=== PATIENT | female | born 1970 | race Caucasian/White ===

== ENCOUNTER 2018-06-13 18:10 | Emergency (ER) | payer BC ==
[2018-06-13 19:20] VITALS: BP 123/87
[2018-06-13] MEDS ORDERED: Ketorolac INJ* 60 MG/2 ML VIAL IM ONE (19:40)
--- NOTE | 2018-06-13 19:48 | UC ---
Shoulder Pain HPI - HPI Summary HPI Summary: Pt c/o sudden onset right shoulder pain 2 days ago. Denies any injury or trauma. Pt has hx of cervical nerve impingement. Pt denies any repetitive movement or heavy lifting recently. Pain is at right upper lateral humerus. No bruising or swelling. - History of Current Complaint Chief Complaint: UCUpperExtremity Stated Complaint: RT SHOULDER/ARM PAIN *1 WEEK Time Seen by Provider: 06/13/18 19:18 Hx Obtained From: Patient Hx Last Menstrual Period: 06/09/18 ?: No Onset/Duration: Sudden Onset, Lasting Days, Still Present Timing: Constant Location Of Pain: Is Discrete @, Radiates To - right forearm Pain Intensity: 9 Character: Sharp, Dull, Aching, Burning Aggravating Factor(s): Movement, Lifting, Internal Rotation, External Rotation Alleviating Factor(s): Nothing Associated Signs And Symptoms: Positive: Numbness/Tingling - right hand tingling - Risk Factors Non-Orthopedic Risk Factor: Negative DVT Risk Factors: Negative Septic Arthritis Risk Factor: Negative - Allergies/Home Medications Allergies/Adverse Reactions: Allergies Allergy/AdvReac Type Severity Reaction Status Date / Time amoxicillin [From Augmentin] Allergy Diarrhea Verified 03/30/18 14:30 clavulanic acid Allergy Diarrhea Verified 03/30/18 14:30 [From Augmentin] digoxin Allergy Unknown Verified 03/30/18 14:30 Reaction Details latex Allergy Rash Verified 03/30/18 14:30 Home Medications: Home Medications Thyroid,Pork [[place] Thyroid] 140 mg PO DAILY 06/13/18 [History Confirmed ] lamoTRIgine [Lamictal] 25 mg PO DAILY 06/13/18 [History Confirmed 06/13/18] PMH/Surg Hx/FS Hx/Imm Hx Previously Healthy: Yes - Surgical History Surgical History: Yes Surgery Procedure, Year, and Place: THYROID 1996&1998 ( THYROIDECTOMY NOW), APPENDIX 1998,GALLBLADDER 2005, C6-C7 FUSION 2008, LT KNEE SURGERY A CHILD ( PETTALLA TENDON REPAIR) CARDIAC ABLATION 1995,LAP YOHANA - Family History Known Family History: Positive: Cardiac Disease - Social History Occupation: Employed Full-time Lives: With Family Alcohol Use: Occasionally Alcohol Amount: 1-2 per week Substance Use Type: None Substance Use Comment - Amount & Last Used: alprazolam and hydrocodone Smoking Status (MU): Former Smoker Type: Cigarettes Amount Used/How Often: 1/2 PPD Length of Time of Smoking/Using Tobacco: On and Off > 10 Years Have You Smoked in the Last Year: No When Did the Patient Quit Smoking/Using Tobacco: 2008 - Immunization History Most Recent Influenza Vaccination: none Review of Systems Constitutional: Negative Skin: Negative Eyes: Negative ENT: Negative Respiratory: Negative Cardiovascular: Negative Gastrointestinal: Negative Genitourinary: Negative Motor: Decreased ROM - right shoulder Neurovascular: Negative Musculoskeletal: Arthralgia, Decreased ROM - right shoulder, Myalgia Neurological: Paresthesia - right hand Psychological: Negative Is Patient Immunocompromised?: No All Other Systems Reviewed And Are Negative: Yes Physical Exam Triage Information Reviewed: Yes Appearance: Well-Appearing Vital Signs: Initial Vital Signs Temp 98.1 F 06/13/18 19:16 Pulse 75 06/13/18 19:16 Resp 15 06/13/18 19:16 BP 123/87 06/13/18 19:16 Pulse Ox 99 06/13/18 19:16 Vital Signs Reviewed: Yes Eye Exam: Normal ENT Exam: Normal Dental Exam: Normal Neck exam: Normal Neck: Positive: Nontender Respiratory Exam: Normal Cardiovascular Exam: Normal Musculoskeletal Exam: Other Musculoskeletal: Positive: Strength Limited @ - right shoulder, ROM Limited @ - right shoulder Neurological Exam: Normal Psychological Exam: Normal Skin Exam: Normal Diagnostics - Radiology No standard instances Radiology Interpretation Completed By: Radiologist Shoulder Course/Dx - Differential Dx/Diagnosis Differential Diagnosis/HQI/PQRI: Bursitis, Sprain, Strain, Tendonitis, Other - nerve impingement Provider Diagnoses: right shoulder pain Discharge - Sign-Out/Discharge Documenting (check all that apply): Patient Departure All imaging exams completed and their final reports reviewed: No Studies - Discharge Plan Condition: Stable Disposition: HOME Prescriptions: Ketorolac TAB * [Toradol TAB *] 10 mg PO Q8H PRN #12 tab PRN Reason: Pain predniSONE TAB* [Deltasone 20 MG TAB*] 20 mg PO DAILY #4 tab Patient Education Materials: Shoulder Bursitis (ED), Shoulder Pain (ED) Referrals: Constanza Keene DO [Primary Care Provider] - Additional Instructions: Please follow up with your pain management provider and orthopedic as soon as possible. If symptoms worsen, please seek care at the closest emergency room. - Billing Disposition and Condition Condition: STABLE Disposition: Home
== END 2018-06-13 20:14 | disposition home or self-care (01) ==
LOC: UCCORT 18:10
DX: M25.511 Pain in right shoulder (principal); Z88.0 Allergy status to penicillin; Z88.8 Allergy status to other drugs, medicaments and biological substances; Z87.891 Personal history of nicotine dependence
CPT/HCPCS: 96372; 99212; G0463; J1885

== ENCOUNTER 2019-12-06 09:17 | Emergency (ER) | payer BC ==
--- OUTSIDE RECORDS SUMMARY | 2019-12-06 10:49 | XMS REPORT | Continuity of Care Document ---
:1970 External Reference #:[id number] Author Name Ag Conrad MD Address [address] [place] [id number] Problems Active Problems Provider Date Adult health examination Onset: 02/16/2019 Carpal tunnel syndrome of right wrist Onset: 12/29/2018 Cobalamin deficiency Onset: 12/07/2018 Social History Type Date Description Comments Sex Female Tobacco Use Start: Unknown End: Patient is a former smoker Smoking Status Reviewed: 10/16/19 Patient is a former smoker Allergies, Adverse Reactions, Alerts Active Allergies Reaction Severity Comments Date Augmentin severe diarrhea 06/08/2019 Cymbalta Nausea Moderate 06/08/2019 Digoxin unknown reaction from childhood Moderate 06/08/2019 Latex rash 06/08/2019 Neurontin somnolence 06/08/2019 Plums Allergic urticaria 06/08/2019 Synthroid Lydia thyroid works better Oct 2016 Mild 06/08/2019 Medications Active Medications SIG Qnty Indications Ordering Date Provider Imitrex 1 tab by mouth 2tabs IRMA Sinha 07/20/2019 100mg Tablets once if no relief from headache take another tab 2 hours later Ibuprofen Take One Tablet 60tabs Ag Conrad MD 03/05/2019 800mg Tablets By Mouth Three Times A Day as Needed Sabrina Allergy 1 daily Oral 30tabs Unknown 02/16/2019 180mg Tablets Vitamin B-12 1 daily Unknown 02/16/2019 1000mcg Sublingual Tablets Sub Alprazolam Oral; Take 1 30tabs Unknown 01/26/2019 0.25mg Tablets Tablet By Mouthat Bedtime as Needed, Maximum Daily Dose = One Tablet Ranitidine HCL 1 daily Oral 30tabs Unknown 12/07/2018 150mg Tablets Cyclobenzaprine HCL oral; take one 90tabs Shefali Posadas SAILING MASTER 06/15/2018 5mg tablet by mouth Tablets three times a day ACCESS REGISTRAR Thyroid 1 daily Oral; 90tabs Unknown 03/30/2018 15mg Tablets Take 30mg plus two 60mg daily ACCESS REGISTRAR Thyroid Oral; Take Two 180tabs Unknown 03/17/2018 60mg Tablets Tablets Daily Flonase Nasal Unknown 03/13/2018 50mcg/Act Suspension Medications Administered in Office Medication SIG Qnty Indications Ordering Provider Date TB Intradermal Test Unknown 05/18/2019 Injection TB Intradermal Test Unknown 11/17/2005 Injection Immunizations CPT Code Status Date Vaccine Lot # [id number] Given 07/17/2019 Flu < 65 years [id number] Given 08/12/2016 Tdap - Boostrix/Adacel 76926 Given 08/12/2016 Tdap - Boostrix/Adacel 68038 Given 08/12/2016 Tdap - Boostrix/Adacel [id number] Given 08/12/2016 Tdap - Boostrix/Adacel 89490 Given 08/12/2016 Tdap - Boostrix/Adacel 83336 Given 08/12/2016 Tdap - Boostrix/Adacel 51879 Given 07/29/2014 Flu < 65 years [id number] Given 06/28/2012 Flu < 65 years 66350 Given 10/15/2011 Flu < 65 years 92424 Given 03/17/2006 Td Toxoids Adsorbed For Use 7Yrs Or Older For Intramuscular Use 86168 Refused 11/11/2015 Influenza Virus Vaccine, Quadrivalent, Split, Im Use 0.25ML Vital Signs Date Vital Result Comment 10/16/2019 2:36pm BP Systolic 118 mmHg BP Diastolic 72 mmHg Height 64 inches 5'4" Weight 162.00 lb Heart Rate 101 /min Body Temperature 98.8 F O2 % BldC Oximetry 98 % BMI (Body Mass Index) 27.8 kg/m2 07/20/2019 10:40am BP Systolic 116 mmHg BP Diastolic 62 mmHg Height 65 inches 5'5" Weight 159.00 lb Heart Rate 77 /min Body Temperature 98.3 F O2 % BldC Oximetry 99 % BMI (Body Mass Index) 26.5 kg/m2 Results Test Acquired Date Facility Test Result H/L Range Note CBC Auto 07/31/2019 [facility] White Blood 6.8 10^3/uL Normal 3.5-10.[address] [place] [address] [phone] Red Blood Count 4.73 10^6/uL Normal 3.70-4.87 Hemoglobin 13.7 g/dL Normal 12.0-16.0 Hematocrit 41 % Normal 35-47 Mean Corpuscular Volume 86 fL Normal 80-97 Mean Corpuscular Hemoglobin 29 pg Normal 27-31 Mean Corpuscular HGB Conc 34 g/dL Normal 31-36 Red Cell Distribution Width 13 % Normal 10-15 Platelet Count 259 10^3/uL Normal 150-450 Mean Platelet Volume 8.9 fL Normal 7.4-10.4 Abs Neutrophils 4.0 10^3/uL Normal 1.5-7.7 Abs Lymphocytes 2.1 10^3/uL Normal 1.0-4.8 Abs Monocytes 0.4 10^3/uL Normal 0-0.8 Abs Eosinophils 0.2 10^3/uL Normal 0-0.6 Abs Basophils 0.1 10^3/uL Normal 0-0.2 Abs Nucleated RBC 0.0 10^3/uL Granulocyte % 58.5 % Lymphocyte % 31.4 % Monocyte % 6.0 % Eosinophil % 3.3 % Basophil % 0.8 % Nucleated Red Blood Cells % 0.1 Comp Metabolic 07/31/2019 [facility] Sodium 140 mmol/L Normal 135-[address] [place] [address] [phone] Potassium 4.2 mmol/L Normal 3.5-5.0 Chloride 107 mmol/L Normal 101-111 Co2 Carbon Dioxide 27 mmol/L Normal 22-32 Anion Gap 6 mmol/L Normal 2-11 Glucose 89 mg/dL Normal 70-100 Blood Urea Nitrogen 13 mg/dL Normal 6-24 Creatinine 0.87 mg/dL Normal 0.51-0.95 BUN/Creatinine Ratio 14.9 Normal 8-20 Calcium 9.1 mg/dL Normal 8.6-10.3 Total Protein 6.8 g/dL Normal 6.4-8.9 Albumin 4.3 g/dL Normal 3.2-5.2 Globulin 2.5 g/dL Normal 2-4 Albumin/Globulin Ratio 1.7 Normal 1-3 Total Bilirubin 0.30 mg/dL Normal 0.2-1.0 Alkaline Phosphatase 68 U/L Normal 34-104 Alt 4 U/L Low 7-52 Ast 14 U/L Normal 13-39 Egfr Non- 69.8 >60 Egfr 84.4 >60 1 Laboratory test 07/31/2019 [facility] TSH (Thyroid 0.09 Low 0.34-5.[address] Stim Horm) mcIU/[place] [address] [phone] Connective 07/31/2019 [facility] Anti-Nuclear 0.5 U 2 Tissue [address] [place] [address] [phone] Cyclic Citrullinated Peptide <15.6 U 3 Interpretation See Comment 4 Lyme Disease AB 07/31/2019 [facility] IgG Immunoblot Negative Negative Immunoblot WB [address] [place] [address] [phone] IgG detected against p41 kDa IgM Immunoblot Negative Negative IgM detected against p41 kDa Lyme Disease Interpretation See Comment 5 Xray 07/13/2019 [facility] Mammography <pending> [address] Screening, [place] [address] Bilateral; 2-View [phone] Each Breast TSH 05/21/2019 N2N/CCD Import TSH 0.39 mcIU/mL 0.34-5 .60 mcIU/m L Vitamin B12 05/21/2019 N2N/CCD Import Vitamin B12 834 pg/mL 180-91 4 pg/mL PPD 05/21/2019 N2N/CCD Import PPD Negative = zero mm 1 Because ethnic data is not always readily available, this report includes an eGFR for both -Americans and non- Americans. The National Kidney Disease Education Program (NKDEP) does not endorse the use of the MDRD equation for patients that are not between the ages of 18 and 70, are , have extremes of body size, muscle mass, or nutritional status, or are non- or non-. According to the National Kidney Foundation, irrespective of diagnosis, the stage of the disease is based on the level of kidney function: Stage Description GFR(mL/min/1.73 m(2)) 1 Kidney damage with normal or decreased GFR 90 2 Kidney damage with mild decrease in GFR 60-89 3 Moderate decrease in GFR 30-59 4 Severe decrease in GFR 15-29 5 Kidney failure <15 (or dialysis) 2 REFERENCE VALUE <=1.0 (Negative) 3 REFERENCE VALUE <20.0 (Negative) 4 Tests for antibodies to dsDNA and ALEXANDRA antigens are not performed automatically unless the STEFFANIE result is > or = 3.0 U. Studies performed at [facility] indicate that positive STEFFANIE results <3.0 U are rarely accompanied by positive second order tests. Test Performed by: [facility] [employer] [place] [address] Vault Mechanic: Shane Riggs M.D. Ph.D.; IA# [id number] 5 Specific serologic response to B. burgdorferi infection is not detected, but cannot rule out early infection during which low or undetectable antibody levels to B. burgdorferi may be present. If clinically indicated, a new serum specimen should be submitted in 7-14 days. ADDITIONAL INFORMATION Per CDC criteria, the Lyme IgG Immunoblot is interpreted as positive if IgG-class antibodies are detected to >=5 B. burgdorferi proteins, and the Lyme IgM Immunoblot is interpreted as positive if IgM-class antibodies are detected to >=2 B. burgdorferi proteins. Immunoblot patterns not meeting these criteria should not be interpreted as positive. Epitopes from certain B. burgdorferi proteins (e.g., p41) are conserved across other bacteria, which may lead to the detection of IgM- and/or IgG-class antibodies on the Lyme disease immunoblots in patients without Lyme disease. Immunoblot should only be ordered on specimens that are positive or equivocal by a FDA-licensed Lyme disease antibody screening test (e.g., EIA). Results of the Lyme IgM immunoblot should not be considered in patients with >= 30 days of symptoms. Test Performed by: [facility] [employer] [place] [address] Vault Mechanic: Shane Riggs M.D. Ph.D.; [facility]# [id number] Procedures Date Code Description Status 10/16/2019 86314 Brief Emotional/Behav Assessment W/ Scoring Doc Per Completed Standard Inst Medical Devices Description No Information Available Encounters Type Date Location Provider Dx Diagnosis Office Visit 10/16/[address] [facility] Giovanny Conrad MD J06.9 Acute upper respiratory 2:30p infection, unspecified Office Visit 07/20/[address] [facility] IRMA Liu G44.201 Tension-type headache, 10:30a unspecified, intractable Z68.26 Body mass index (BMI) 26.0-26.9, adult Assessments Date Code Description Provider 10/16/2019 J06.9 Acute upper respiratory infection, unspecified Ag Conrad MD 07/20/2019 G44.201 Tension-type headache, unspecified, intractable IRMA Sinha 07/20/2019 Z68.26 Body mass index (BMI) 26.0-26.9, adult IRMA Sinha 07/17/2019 Z23 Encounter for immunization Ag Conrad MD Plan of Treatment No Information Available Functional Status Description No Information Available Mental Status Description No Information Available Referrals Description No Information Available
--- OUTSIDE RECORDS SUMMARY | 2019-12-06 10:49 | XMS REPORT | Continuity of Care Document ---
:1970 External Reference #:[id number] Author Name Ag Conrad MD (transmitted by agent of provider Tavia Quinonez) Address [address] [place] [id number] Problems Active Problems Provider Date Adult health examination Onset: 02/16/2019 Carpal tunnel syndrome of right wrist Onset: 12/29/2018 Cobalamin deficiency Onset: 12/07/2018 Hypothyroidism Onset: 12/07/2018 Migraine Ag Conrad MD Onset: 10/16/2019 Allergic rhinitis Ag Conrad MD Onset: 11/17/2019 Social History Type Date Description Comments Sex Female Tobacco Use Start: Unknown End: Patient is a former smoker Smoking Status Reviewed: 12/03/19 Patient is a former smoker Allergies, Adverse Reactions, Alerts Active Allergies Reaction Severity Comments Date Augmentin severe diarrhea 06/08/2019 Cymbalta Nausea Moderate 06/08/2019 Digoxin unknown reaction from childhood Moderate 06/08/2019 Latex rash 06/08/2019 Neurontin somnolence 06/08/2019 Plums Allergic urticaria 06/08/2019 Synthroid [place] thyroid works better Oct 2016 Mild 06/08/2019 Medications Active Medications SIG Qnty Indications Ordering Date Provider Ibuprofen Take One Tablet 60tabs Ag Conrad MD 03/05/2019 800mg Tablets By Mouth Three Times A Day as Needed Vitamin B-12 1 daily Unknown 02/16/2019 1000mcg Sublingual Tablets Sub Cyclobenzaprine HCL oral; take one 90tabs IRMA Sinha 06/15/2018 5mg tablet by mouth Tablets three times a day ACCOUNTS RECEIVABLE ASSISTANT Thyroid Oral; Take Two 180tabs Unknown 03/17/2018 60mg Tablets Tablets Daily Flonase Nasal Unknown 03/13/2018 50mcg/Act Suspension Levocetirizine Take One Tablet Unknown Dihydrochloride By Mouth Every 5mg Day Tablets Montelukast Sodium Take One Tablet Unknown 10mg By Mouth AT Tablets Bedtime History Medications Prednisone 2 tabs once daily 10tabs Constanza Keene, 11/23/2019 - 20mg Tablets for 5 days DO 12/02/2019 Indomethacin take one tab 90caps Constanza Keene, 11/06/2019 - 25mg twice daily, DO 11/23/2019 Capsules increase to three times daily if needed Imitrex 1 tab by mouth 2tabs IRMA Sinha 07/20/2019 - 100mg Tablets once if no relief 12/02/2019 from headache take another tab 2 hours later Medications Administered in Office Medication SIG Qnty Indications Ordering Provider Date TB Intradermal Test Unknown 05/18/2019 Injection TB Intradermal Test Unknown 11/17/2005 Injection Immunizations CPT Code Status Date Vaccine Lot # [id number] Given 07/17/2019 Flu < 65 years [id number] 81200 Given 08/12/2016 Tdap - Boostrix/Adacel 07161 Given 08/12/2016 Tdap - Boostrix/Adacel 53903 Given 08/12/2016 Tdap - Boostrix/Adacel 60251 Given 08/12/2016 Tdap - Boostrix/Adacel 30916 Given 08/12/2016 Tdap - Boostrix/Adacel 86521 Given 08/12/2016 Tdap - Boostrix/Adacel 17891 Given 07/29/2014 Flu < 65 years 93703 Given 06/28/2012 Flu < 65 years 45016 Given 10/15/2011 Flu < 65 years 88135 Given 03/17/2006 Td Toxoids Adsorbed For Use 7Yrs Or Older For Intramuscular Use 78246 Refused 11/11/2015 Influenza Virus Vaccine, Quadrivalent, Split, Im Use 0.25ML Vital Signs Date Vital Result Comment 12/03/2019 10:10am BP Systolic 114 mmHg BP Diastolic 68 mmHg Weight 160.00 lb Heart Rate 102 /min Body Temperature 99.0 F O2 % BldC Oximetry 97 % 11/06/2019 10:49am BP Systolic 118 mmHg BP Diastolic 80 mmHg Weight 163.00 lb Heart Rate 81 /min Body Temperature 98.2 F O2 % BldC Oximetry 97 % Results Test Acquired Date Facility Test Result H/L Range Note CFM Rapid Flu 12/03/2019 [facility] Influenza A Rapid Neg A & B ( )- - Test Influenza B Rapid Test Neg Laboratory 11/02/2019 [facility] TSH (Thyroid 1.30 Normal 0.34 -5.60 test finding [address] Stim Horm) mcIU/[place] [address] [phone] Anti Nuclear Antibody 0.4 U 1 Comp Metabolic 11/02/2019 [facility] Sodium 138 mmol/L Normal 135-[address] [place] [address] [phone] Potassium 4.1 mmol/L Normal 3.5-5.0 Chloride 105 mmol/L Normal 101-111 Co2 Carbon Dioxide 28 mmol/L Normal 22-32 Anion Gap 5 mmol/L Normal 2-11 Glucose 74 mg/dL Normal 70-100 Blood Urea Nitrogen 11 mg/dL Normal 6-24 Creatinine 0.81 mg/dL Normal 0.51-0.95 BUN/Creatinine Ratio 13.6 Normal 8-20 Calcium 9.0 mg/dL Normal 8.6-10.3 Total Protein 6.9 g/dL Normal 6.4-8.9 Albumin 4.3 g/dL Normal 3.2-5.2 Globulin 2.6 g/dL Normal 2-4 Albumin/Globulin Ratio 1.7 Normal 1-3 Total Bilirubin 0.40 mg/dL Normal 0.2-1.0 Alkaline Phosphatase 75 U/L Normal 34-104 Alt 5 U/L Low 7-52 Ast 15 U/L Normal 13-39 Egfr Non- 75.8 >60 Egfr 91.7 >60 2 CBC Auto 11/02/2019 [facility] White Blood 5.7 10^3/uL Normal 3.5-10.[address] [place] [address] [phone] Red Blood Count 4.72 10^6/uL Normal 3.70-4.87 Hemoglobin 14.2 g/dL Normal 12.0-16.0 Hematocrit 40 % Normal 35-47 Mean Corpuscular Volume 86 fL Normal 80-97 Mean Corpuscular Hemoglobin 30 pg Normal 27-31 Mean Corpuscular HGB Conc 35 g/dL Normal 31-36 Red Cell Distribution Width 13 % Normal 10-15 Platelet Count 266 10^3/uL Normal 150-450 Mean Platelet Volume 9.4 fL Normal 7.4-10.4 Abs Neutrophils 3.2 10^3/uL Normal 1.5-7.7 Abs Lymphocytes 1.9 10^3/uL Normal 1.0-4.8 Abs Monocytes 0.4 10^3/uL Normal 0-0.8 Abs Eosinophils 0.1 10^3/uL Normal 0-0.6 Abs Basophils 0.1 10^3/uL Normal 0-0.2 Abs Nucleated RBC 0.0 10^3/uL Granulocyte % 56.2 % Lymphocyte % 34.2 % Monocyte % 6.6 % Eosinophil % 2.0 % Basophil % 1.0 % Nucleated Red Blood Cells % 0.1 Laboratory test 11/02/2019 [facility] C Reactive 1.59 mg/L Normal <8.[address] [place] [address] [phone] Erythrocyte Sed Rate 9 mm/Hr Normal 0-19 Urinalysis Profile 11/02/2019 [facility] Urine Color Straw [address] [place] [address] [phone] Urine Appearance Clear Urine Specific [address] 1.005 Low 1.010-1.030 Urine pH 7.0 Normal 5-9 Urine Urobilinogen Negative Negative Urine Ketones Negative Negative Urine Protein Negative Negative Urine Leukocytes Negative Negative Urine Blood Negative Negative Urine Nitrite Negative Negative Urine Bilirubin Negative Negative Urine Glucose Negative Negative CBC Auto 07/31/2019 [facility] White Blood 6.8 10^3/uL Normal 3.5-10.[address] [place] [address] [phone] Red Blood Count 4.73 10^6/uL Normal 3.70-4.87 [...] Blood Cells % 0.1 Comp Metabolic 07/31/2019 [facility] Sodium 140 mmol/L Normal 135-[address] [place] [address] [phone] Potassium 4.2 mmol/L Normal 3.5-5.0 Chloride 107 [...] Egfr Non- 69.8 >60 Egfr 84.4 >60 3 Laboratory test 07/31/2019 [facility] TSH (Thyroid 0.09 Low 0.34-5.[address] Stim Horm) mcIU/[place] [address] [phone] Connective 07/31/2019 [facility] Anti-Nuclear 0.5 U [address] [place] [address] [phone] Cyclic Citrullinated Peptide <15.6 U 5 Interpretation See Comment 6 Lyme Disease AB 07/31/2019 [facility] IgG Immunoblot Negative Negative Immunoblot WB [address] [facility] [address] [phone] IgG detected against p41 kDa IgM Immunoblot Negative Negative IgM detected against p41 kDa Lyme Disease Interpretation See Comment 7 Xray 07/13/2019 [facility] Mammography Screening, <pending> [address] Bilateral; 2-[place] [address] [phone] 1 REFERENCE VALUE <=1.0 (Negative) Test Performed by: [facility] [address] [place] [address] Medical Imaging Tech: Shane Riggs M.D. Ph.D.; IA# [id number] 2 Because ethnic data is not always readily [...] 15-29 5 Kidney failure <15 (or dialysis) 3 Because ethnic data is not always readily [...] 15-29 5 Kidney failure <15 (or dialysis) 4 REFERENCE VALUE <=1.0 (Negative) 5 REFERENCE VALUE <20.0 (Negative) 6 Tests for antibodies to dsDNA and ALEXANDRA antigens are not performed automatically unless the STEFFANIE result is > or = 3.0 U. Studies performed at [facility] indicate that positive STEFFANIE results <3.0 U are rarely accompanied by positive second order tests. Test Performed by: [facility] [employer] [place] [address] Medical Imaging Tech: Shane Riggs M.D. Ph.D.; CLIA# [id number] 7 Specific serologic response to B. burgdorferi infection [...] 30 days of symptoms. Test Performed by: [facility] [address] [facility], [place] [address] Medical Imaging Tech: Shane Riggs M.D. Ph.D.; IA# [id number] Procedures Date Code Description Status 12/03/2019 76774 Brief Emotional/Behav Assessment W/ Scoring Doc Per Completed Standard Inst 11/06/2019 32461 Brief Emotional/Behav Assessment W/ Scoring Doc Per Completed Standard Inst 10/16/2019 98211 Brief Emotional/Behav Assessment W/ Scoring Doc Per Completed Standard Inst Medical Devices Description No Information Available Encounters Type Date Location Provider Dx Diagnosis Office Visit 11/06/2019 10:45a [facility] Constanza Josenow, DO R51 Headache H53.8 Other visual disturbances R14.0 Abdominal distension (gaseous) Z13.31 Encounter for screening for depression Office Visit 10/16/2019 2:30p [facility] Main Ag Conrad MD J06.9 Acute upper respiratory infection, unspecified Z13.31 Encounter for screening for depression Office Visit 07/20/2019 10:30a [facility] Main IRMA Sinha G44.201 Tension- type headache, unspecified, intractable Z68.26 Body mass index (BMI) 26.0-26.9, adult Assessments Date Code Description Provider 12/03/2019 R05 Cough Ag Conrad MD 11/06/2019 R51 Headache Constanza Josenow, DO 11/06/2019 H53.8 Other visual disturbances Constanza Josenow, DO 11/06/2019 R14.0 Abdominal distension (gaseous) Constanza Josenow, DO 11/06/2019 Z13.31 Encounter for screening for depression Constanza Joselizw, DO 10/16/2019 J06.9 Acute upper respiratory infection, Ag Conrad MD unspecified 10/16/2019 Z13.31 Encounter for screening for depression Ag Conrad MD 07/20/2019 G44.201 Tension-type headache, unspecified, IRMA Sinha intractable 07/20/2019 Z68.26 Body mass index (BMI) 26.0-26.9, adult IRMA Sinha 07/17/2019 Z23 Encounter for immunization Ag Conrad MD Plan of Treatment No Information Available Functional Status Description No Information Available Mental Status Description No Information Available Referrals Refer to Reason for Referral Status Appt Date Patient Choice Daily, severe headaches, MRI brain negative Sent
--- OUTSIDE RECORDS SUMMARY | 2019-12-06 10:49 | XMS REPORT | Continuity of Care Document ---
:1970 External Reference #:[id number] Author Name Constanza Keene, DO Address [address] [place] [address] Problems Active Problems Provider Date Adult health examination Onset: 02/16/2019 Carpal tunnel syndrome of right wrist Onset: 12/29/2018 Cobalamin deficiency Onset: 12/07/2018 Hypothyroidism Onset: 12/07/2018 Migraine Ag Conrad MD Onset: 10/16/2019 Social History Type Date Description Comments Sex Female Tobacco Use Start: Unknown End: Patient is a former smoker Smoking Status Reviewed: 10/16/19 Patient is a former smoker Allergies, Adverse Reactions, Alerts Active Allergies Reaction Severity Comments Date Augmentin severe diarrhea 06/08/2019 Cymbalta Nausea Moderate 06/08/2019 Digoxin unknown reaction from childhood Moderate 06/08/2019 Latex rash 06/08/2019 Neurontin somnolence 06/08/2019 Plums Allergic urticaria 06/08/2019 Synthroid [place] thyroid works better Oct 2016 Mild 06/08/2019 [...] Cyclobenzaprine HCL oral; take one 90tabs Shefali PosadasIRMA 06/15/2018 5mg tablet by mouth Tablets three times a day [employer] Thyroid 1 daily Oral; 90tabs Unknown 03/30/2018 15mg Tablets Take 30mg plus two 60mg daily [employer] Thyroid Oral; Take Two 180tabs Unknown 03/17/2018 60mg Tablets Tablets Daily Flonase Nasal Unknown 03/13/2018 50mcg/Act Suspension Medications Administered in Office Medication SIG Qnty Indications Ordering Provider Date TB Intradermal Test Unknown 05/18/2019 Injection TB Intradermal Test Unknown 11/17/2005 Injection Immunizations CPT Code Status Date Vaccine Lot # [id number] Given 07/17/2019 Flu < 65 years [id number] 77290 Given 08/12/2016 Tdap - Boostrix/Adacel 28000 Given 08/12/2016 Tdap - Boostrix/Adacel 99982 Given 08/12/2016 Tdap - Boostrix/Adacel 88652 Given 08/12/2016 Tdap - Boostrix/Adacel 67299 Given 08/12/2016 Tdap - Boostrix/Adacel 96179 Given 08/12/2016 Tdap - Boostrix/Adacel 30049 Given 07/29/2014 Flu < 65 years 41071 Given 06/28/2012 Flu < 65 years 08066 Given 10/15/2011 Flu < 65 years 14517 Given 03/17/2006 Td Toxoids Adsorbed For Use 7Yrs Or Older For Intramuscular Use 43214 Refused 11/11/2015 Influenza Virus Vaccine, Quadrivalent, Split, [...] Date Facility Test Result H/L Range Note Laboratory test 11/02/2019 [facility] TSH 1.30 Normal 0.34- 5.[address] (Thyroid mcIU/[place] [address] Stim [phone] Horm) Anti Nuclear Antibody 0.4 U 1 Comp Metabolic 11/02/2019 [facility] Sodium 138 mmol/L Normal 135-[address] [place], [place] [id number] [phone] Potassium 4.1 mmol/L Normal 3.5-5.0 Chloride 105 [...] Egfr 91.7 >60 2 CBC Auto 11/02/2019 [facility] White Blood 5.7 10^3/uL Normal 3.5-10.[address] Count [place], [place] [id number] [phone] Red Blood Count 4.72 10^6/uL Normal 3.70-4.87 [...] Blood Cells % 0.1 Laboratory test 11/02/2019 [facility] C Reactive 1.59 mg/L Normal <8.[address] [place] [address] [phone] Erythrocyte Sed Rate 9 mm/Hr Normal 0-19 Urinalysis Profile 11/02/2019 [facility] Urine Color Straw [address] [place] [address] [phone] Urine Appearance Clear Urine Specific [place] 1.005 Low 1.010-1.030 Urine pH 7.0 Normal 5-9 Urine Urobilinogen Negative Negative Urine Ketones Negative Negative Urine Protein Negative Negative Urine Leukocytes Negative Negative Urine Blood Negative Negative Urine Nitrite Negative Negative Urine Bilirubin Negative Negative Urine Glucose Negative Negative CBC Auto 07/31/2019 [facility] White Blood 6.8 10^3/uL Normal 3.5-10.[address] [place] [address] [phone] Red Blood Count 4.73 10^6/uL Normal 3.70-4.87 [...] Blood Cells % 0.1 Comp Metabolic 07/31/2019 [facility] Sodium 140 mmol/L Normal 135-[address] [place] [address] [phone] Potassium 4.2 mmol/L Normal 3.5-5.0 Chloride 107 [...] Egfr 84.4 >60 3 Laboratory test 07/31/2019 [facility] TSH (Thyroid 0.09 Low 0.34-5.[address] Stim Horm) mcIU/mL [place], [place] [address] [phone] Connective 07/31/2019 [facility] Anti-Nuclear 0.5 U 4 Tissue Panel [address] [place] [address] [phone] Cyclic Citrullinated Peptide <15.6 U 5 Interpretation See Comment 6 Lyme Disease AB 07/31/2019 [facility] IgG Immunoblot Negative Negative Immunoblot WB [address] [place] [address] [phone] IgG detected against p41 kDa IgM Immunoblot Negative Negative IgM detected against p41 kDa Lyme Disease Interpretation See Comment 7 Xray 07/13/2019 [facility] Mammography <pending> [address] Screening, [place] [address] Bilateral; 2-View [phone] Each Breast TSH 05/21/2019 N2N/CCD Import TSH 0.39 mcIU/mL 0.34-5 .60 mcIU/m L Vitamin B12 05/21/2019 N2N/CCD Import Vitamin B12 834 pg/mL 180-91 4 pg/mL PPD 05/21/2019 N2N/CCD Import PPD Negative = zero mm 1 REFERENCE VALUE <=1.0 (Negative) Test Performed by: [facility] [address] [place] [address] Clearer: Shane Riggs M.D. Ph.D.; IA# [id number] 2 Because ethnic data is not always [...] or = 3.0 U. Studies performed at [facility] indicate that positive STEFFANIE results <3.0 U are rarely accompanied by positive second order tests. Test Performed by: [facility] [place] [address] [place] [address] Clearer: Shane Riggs M.D. Ph.D.; CLIA# [id number] 7 Specific serologic response to B. burgdorferi [...] 30 days of symptoms. Test Performed by: [facility] [address] [place] [address] Clearer: Shane Riggs M.D. Ph.D.; CLIA# [id number] Procedures Date Code Description Status 10/16/2019 51609 Brief Emotional/Behav Assessment W/ Scoring Doc Per Completed Standard [facility] Medical Devices Description No Information Available Encounters Type Date Location Provider Dx Diagnosis Office Visit 10/16/2019 [facility] Ag Conrad MD J06.9 Acute upper respiratory 2:30p infection, unspecified Office Visit 07/20/2019 [facility] IRMA Sinha G44.201 Tension-type headache, 10:30a unspecified, intractable Z68.26 Body mass index (BMI) 26.0-26.9, adult Assessments Date Code Description Provider 10/16/2019 J06.9 Acute upper respiratory infection, unspecified Ag Conrad MD 07/20/2019 G44.201 Tension-type headache, unspecified, intractable IRMA Sinha 07/20/2019 Z68.26 Body mass index (BMI) 26.0-26.9, adult IRMA Sinha 07/17/2019 Z23 Encounter for immunization Ag Conrad MD Plan of Treatment Future Appointment(s):11/06/2019 10:45 am - Constanza Keene DO at [facility] Main - Ag Conrad MDJ06.9 Acute upper respiratory infection, unspecified Functional Status Description No Information Available Mental Status Description No Information Available Referrals Description No Information Available
--- OUTSIDE RECORDS SUMMARY | 2019-12-06 10:49 | XMS REPORT | Continuity of Care Document ---
:1970 External Reference #:[id number] Author Name Angela Bro M.D. 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 Onset: 10/23/2019 Social History Type Date Description Comments Sex Unknown ETOH Use Occasionally consumes alcohol ETOH Use Occasionally consumes beer ETOH Use Occasionally consumes wine Tobacco Use Start: Unknown End: Patient is a former smoker Unknown Recreational Drug Use Never Used Drugs Allergies, Adverse Reactions, Alerts Active Allergies Reaction Severity Comments Date Augmentin severe diarrhea 10/23/2019 Digoxin cant recall 10/23/2019 Latex Hives 10/23/2019 Medications Active Medications SIG Qnty Indications Ordering Date Provider Montelukast Sodium 1 tab by mouth 30tabs J30.9 Angela Burciaga 10/23/2019 10mg every night at Marge Bro Tablets bedtime Levocetirizine 1 by mouth 30tabs J30.9 Angela Patrica 10/23/2019 Dihydrochloride every day Marge Bro 5mg Tablets Flonase Sensimist 1 spray each 27.300ml Angela Burciaga 10/23/2019 nostril once a Marge Bro 27.5mcg/[place] day Suspension Ibuprofen Take One Unknown 800mg Tablets Tablet By Mouth Three Times A Day as Needed [employer] SPECIALIST Thyroid Ag Conrad, 60mg Tablets M.DHilario Cyclobenzaprine HCL Shefali Posadas NP 5mg Tablets Alprazolam Y[place], 0.25mg Tablets Constanza Burciaga DO Vitamin B-12 1 by mouth Unknown 1000mcg every day Tablets Immunizations CPT Code Status Date Vaccine Lot # 95093 Given Unknown Influenza Vaccine Vital Signs Date Vital Result Comment 10/23/2019 1:59pm Height 64.2 inches 5'4.20" Weight 160.00 lb Weight 72.576 kg Respiratory Rate 16 /min Heart Rate 79 /min O2 % BldC Oximetry 98 % BP Systolic 114 mmHg BP Diastolic 70 mmHg BMI (Body Mass Index) 27.3 kg/m2 Results Description No Information Available Procedures Date Code Description Status 10/23/2019 09110 Skin Test Scratch # Of Units ____ Completed Medical Devices Description No Information Available Encounters Type Date Location Provider Dx Diagnosis Office Visit 10/23/2019 [facility] Angela Valerio30.9 Allergic rhinitis, 2:00p Marge Bro unspecified Assessments Date Code Description Provider 10/23/2019 J30.9 Allergic rhinitis, unspecified Angela Bro M.D. Plan of Treatment Future Appointment(s):11/06/2019 9:00 am - Allergy Testing at [facility] 9:20 am - ALL[facility]ontes [facility] - Angela Bro M.D.J30.9 Allergic rhinitis, unspecifiedNew Medication: Montelukast Sodium 10 mg - 1 tab by mouth every night at bedtimeLevocetirizine Dihydrochloride 5 mg - 1 by mouth every dayFollow up:2 weeks, *DISCUSSION: After the evaluation is completed, the results and treatment choices will be explained. *TAKE NO ANTIHISTAMINES OR MEDICATIONS THAT CONTAIN ANTIHISTAMINES 72 HOURS PRIOR TO SKIN TESTING VISIT . POSSIBLE GRASS *INTRADERMAL TESTS: A pinprick of extract is injected underneath the skin on the upper arm.Recommendations:Prick Skin Test - Seasonal and Environmental Environmental controls reviewed risks/benefits of IT briefly discussed trial of Flonase sensimist 2 sprays to each nostril once daily recommend Xyzal (Levocetirizine) 5 mg once daily recommend Singulair (Montelukast) 10 mg once daily Functional Status Description No Information Available Mental Status Description No Information Available Referrals Description No Information Available
--- OUTSIDE RECORDS SUMMARY | 2019-12-06 10:49 | XMS REPORT | Continuity of Care Document ---
:1970 External Reference #:[id number] Author Name Constanza Keene DO Address [address] [place] [address] Problems Active Problems Provider Date Adult health examination Onset: 02/16/2019 Carpal tunnel syndrome of right wrist Onset: 12/29/2018 Cobalamin deficiency Onset: 12/07/2018 Hypothyroidism Onset: 12/07/2018 Migraine Ag Conrad MD Onset: 10/16/2019 Social History Type Date Description Comments Sex Female Tobacco Use Start: Unknown End: Patient is a former smoker Smoking Status Reviewed: 11/06/19 Patient is a former smoker Allergies, Adverse Reactions, Alerts Active Allergies Reaction Severity Comments Date Augmentin severe diarrhea 06/08/2019 Cymbalta Nausea Moderate 06/08/2019 Digoxin unknown reaction from childhood Moderate 06/08/2019 Latex rash 06/08/2019 Neurontin somnolence 06/08/2019 Plums Allergic urticaria 06/08/2019 Synthroid [place] thyroid works better Oct 2016 Mild 06/08/2019 Medications Active Medications SIG Qnty Indications Ordering Date Provider Indomethacin take one tab 90caps Constanza 11/06/2019 25mg twice daily, DO Yecenia Capsules increase to three times daily if [...] by mouth Tablets three times a day CREDIT [employer]ODUCT [employer]NALYST Thyroid Oral; Take Two 180tabs Unknown 03/17/2018 60mg Tablets Tablets Daily Flonase Nasal Unknown 03/13/2018 50mcg/Act Suspension Levocetirizine Take One Tablet Unknown Dihydrochloride By Mouth Every 5mg Day Tablets Montelukast Sodium Take One Tablet Unknown 10mg By Mouth AT Tablets Bedtime Medications Administered in Office Medication SIG Qnty Indications Ordering Provider Date TB Intradermal Test Unknown 05/18/2019 Injection TB Intradermal Test Unknown 11/17/2005 Injection Immunizations CPT Code Status Date Vaccine Lot # [id number] Given 07/17/2019 Flu < 65 years [id number] Given 08/12/2016 Tdap - Boostrix/Adacel 15214 Given 08/12/2016 Tdap - Boostrix/Adacel 75528 Given 08/12/2016 Tdap - Boostrix/Adacel 78369 Given 08/12/2016 Tdap - Boostrix/Adacel 73163 Given 08/12/2016 Tdap - Boostrix/Adacel 09137 Given 08/12/2016 Tdap - Boostrix/Adacel 32249 Given 07/29/2014 Flu < 65 years 39792 Given 06/28/2012 Flu < 65 years 56272 Given 10/15/2011 Flu < 65 years 38761 Given 03/17/2006 Td Toxoids Adsorbed For Use 7Yrs Or Older For Intramuscular Use 23406 Refused 11/11/2015 Influenza Virus Vaccine, Quadrivalent, Split, Im Use 0.25ML Vital Signs Date Vital Result Comment 11/06/2019 10:49am BP Systolic 118 mmHg BP Diastolic 80 mmHg Weight 163.00 lb Heart Rate 81 /min Body Temperature 98.2 F O2 % BldC Oximetry 97 % 10/16/2019 2:36pm BP Systolic 118 mmHg BP Diastolic 72 mmHg Height 64 inches 5'4" Weight 162.00 lb Heart Rate 101 /min Body Temperature 98.8 F O2 % BldC Oximetry 98 % BMI (Body Mass Index) 27.8 kg/m2 Results Test Acquired Date Facility Test Result H/L Range Note Laboratory test 11/02/2019 [facility] TSH 1.30 Normal 0.34- 5.[address] (Thyroid mcIU/[place] [address] Stim [phone] Horm) Anti Nuclear Antibody 0.4 U 1 Comp Metabolic 11/02/2019 [facility] Sodium 138 mmol/L Normal 135-[address] [place] [address] [phone] Potassium 4.1 mmol/L Normal 3.5-5.0 Chloride 105 [...] Egfr 91.7 >60 2 CBC Auto 11/02/2019 [facility] White Blood 5.7 10^3/uL Normal 3.5-10.[address] [place] [address] [phone] Red Blood Count 4.72 10^6/uL Normal 3.70-4.87 [...] Blood Cells % 0.1 Laboratory test 11/02/2019 [facility] C Reactive 1.59 mg/L Normal <8.[address] [place] [address] [phone] Erythrocyte Sed Rate 9 mm/Hr Normal 0-19 Urinalysis Profile 11/02/2019 [facility] Urine Color Straw [address] [place] [address] [phone] Urine Appearance Clear Urine Specific [place] 1.005 Low 1.010-1.030 Urine pH 7.0 Normal 5-9 Urine Urobilinogen Negative Negative Urine Ketones Negative Negative Urine Protein Negative Negative Urine Leukocytes Negative Negative Urine Blood Negative Negative Urine Nitrite Negative Negative Urine Bilirubin Negative Negative Urine Glucose Negative Negative CBC Auto 07/31/2019 [facility] White Blood 6.8 10^3/uL Normal 3.5-10.[address] [place] [address] [phone] Red Blood Count 4.73 10^6/uL Normal 3.70-4.87 [...] Blood Cells % 0.1 Comp Metabolic 07/31/2019 [facility] Sodium 140 mmol/L Normal 135-[address] [place] [address] [phone] Potassium 4.2 mmol/L Normal 3.5-5.0 Chloride 107 [...] Egfr 84.4 >60 3 Laboratory test 07/31/2019 [facility] TSH (Thyroid 0.09 Low 0.34-5.[address] Stim Horm) mcIU/[place] [address] [phone] Connective 07/31/2019 [facility] Anti-Nuclear 0.5 U [address] [place] [address] [phone] Cyclic Citrullinated Peptide <15.6 U 5 Interpretation See Comment 6 Lyme Disease AB 07/31/2019 [facility] IgG Immunoblot Negative Negative Immunoblot WB [address] [place] [address] [phone] IgG detected against p41 kDa IgM Immunoblot Negative Negative IgM detected against p41 kDa Lyme Disease Interpretation See Comment 7 Xray 07/13/2019 [facility] Mammography <pending> [address] [facility], [place] [address] Bilateral; 2-View [phone] Each Breast TSH 05/21/2019 [facility] Import TSH 0.39 mcIU/mL 0.34-5 .60 mcIU/m L Vitamin B12 05/21/2019 [facility] Import Vitamin B12 834 pg/mL 180-91 4 pg/mL PPD 05/21/2019 [facility] Import PPD Negative = zero mm 1 REFERENCE VALUE <=1.0 (Negative) Test Performed by: [facility] [address] [place] [address] Insert Operator: Shane Riggs M.D. Ph.D.; [facility]# [id number] 2 Because ethnic data is not always [...] order tests. Test Performed by: [facility] [place] [address] Insert Operator: Shane Riggs M.D. Ph.D.; CLIA# [id number] 7 Specific serologic response to B. burgdorferi [...] 30 days of symptoms. Test Performed by: [facility] [address] [place] [address] Insert Operator: Shane Riggs M.D. Ph.D.; CLIA# [id number] Procedures Date Code Description Status 11/06/2019 20713 Brief Emotional/Behav Assessment W/ Scoring Doc Per Completed Standard Inst 10/16/2019 82902 Brief Emotional/Behav Assessment W/ Scoring Doc Per Completed Standard Inst Medical Devices Description No Information Available Encounters Type Date Location Provider Dx Diagnosis Office Visit 11/06/2019 10:45a [facility] Constanza Rolonw, DO R51 Headache H53.8 Other visual disturbances R14.0 Abdominal distension (gaseous) Office Visit 10/16/2019 2:30p [facility] Main Ag Conrad MD J06.9 Acute upper respiratory infection, unspecified Z13.31 Encounter for screening for depression Office Visit 07/20/2019 10:30a [facility] Main IRMA Sinha G44.201 Tension- type headache, unspecified, intractable Z68.26 Body mass index (BMI) 26.0-26.9, adult Assessments Date Code Description Provider 11/06/2019 R51 Headache Constanza Rolonw, DO 11/06/2019 H53.8 Other visual disturbances Constanza Josenow, DO 11/06/2019 R14.0 Abdominal distension (gaseous) Constanza Joselizw, DO 10/16/2019 J06.9 Acute upper respiratory infection, Ag Conrad MD unspecified 10/16/2019 Z13.31 Encounter for screening for depression Ag Conrad MD 07/20/2019 G44.201 Tension-type headache, unspecified, IRMA Sinha intractable 07/20/2019 Z68.26 Body mass index (BMI) 26.0-26.9, adult IRMA Sinha 07/17/2019 Z23 Encounter for immunization Ag Conrad MD Plan of Treatment 11/06/2019 - Constanza Ольгаw, DOR51 HeadacheNew Xrays:MRI Brain W/O Contrast, Ordered: 11/06/19Comments:I am concerned about the severity of her headaches and the new onset They almost sound like ice pickheadaches except the history that they sometimes last for hours, which would not be typical They do not really sound like migraines given multiple episodes during the day, although could be - she got little relief with excedrine migraine and caffeine - has not tried the triptan Because of new onset, severe, daily headaches and associated visual disturbance, have ordered an MRI of her brain Have prescribed indomethacin with strong cautions to not use any other NSAIDs and to make sure to take with food as high risk of GI bleeding, olga lidia with how much ibuprofen she has been taking We will follow up after MRI or sooner if anything [id number] Other visual disturbancesComments:Discussed getting full exam by ophtalmologist , she will do thisR14.0 Abdominal distension (gaseous)Comments:Chronic issues with abdominal discomfort and symptomsLabs and exam reassuringRecently worse from NSAIDs but I suspect mostly stress related - we discussed thisAllNew Medication:Indomethacin 25 mg - take one tab twice daily, increase to three times daily if needed Functional Status Description No Information Available Mental Status Description No Information Available Referrals Description No Information Available
--- OUTSIDE RECORDS SUMMARY | 2019-12-06 10:49 | XMS REPORT | Continuity of Care Document ---
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 Synthroid [place] thyroid works better Oct 2016 Mild 06/08/2019 Medications Active Medications SIG Qnty Indications Ordering Date Provider Ibuprofen Take One Tablet 60tabs Ag Conrad MD 03/05/2019 800mg Tablets By Mouth Three Times A Day as Needed Vitamin B-12 1 daily Unknown 02/16/2019 1000mcg Sublingual Tablets Sub Cyclobenzaprine HCL oral; take one 90tabs IRMA Sinha 06/15/2018 5mg tablet by mouth Tablets three times a day HOT MAN Thyroid Oral; Take Two 180tabs Unknown 03/17/2018 [...] CPT Code Status Date Vaccine Lot # [id number] Given 07/17/2019 Flu < 65 years [id number] 62237 Given 08/12/2016 Tdap - Boostrix/Adacel 17117 Given 07/29/2014 Flu < 65 years 46049 Given 06/28/2012 Flu < 65 years 69251 Given 10/15/2011 Flu < 65 years 80387 Given 03/17/2006 Td Toxoids Adsorbed For Use 7Yrs Or Older For Intramuscular Use 47276 Refused 11/11/2015 Influenza Virus Vaccine, Quadrivalent, Split, [...] H/L Range Note CFM Rapid Flu 12/03/2019 [facility] Influenza A Rapid Neg A & B ( )- - Test Influenza B Rapid Test Neg Laboratory 11/02/2019 [facility] TSH (Thyroid 1.30 Normal 0.34 -5.60 test finding [address] Stim Horm) mcIU/[place] [address] [phone] Anti Nuclear Antibody 0.4 U 1 Comp Metabolic 11/02/2019 [facility] Sodium 138 mmol/L Normal 135-[address] [place] [address] [phone] Potassium 4.1 mmol/L Normal 3.5-5.0 Chloride 105 [...] Egfr 91.7 >60 2 CBC Auto 11/02/2019 [facility] White Blood 5.7 10^3/uL Normal 3.5-10.[address] [place] [address] [phone] Red Blood Count 4.72 10^6/uL Normal 3.70-4.87 [...] Blood Cells % 0.1 Laboratory test 11/02/2019 [facility] C Reactive 1.59 mg/L Normal <8.[address] [place] [address] [phone] Erythrocyte Sed Rate 9 mm/Hr Normal 0-19 Urinalysis Profile 11/02/2019 [facility] Urine Color Straw [address] [place] [address] [phone] Urine Appearance Clear Urine Specific [place] 1.005 Low 1.010-1.030 Urine pH 7.0 Normal 5-9 Urine Urobilinogen Negative Negative Urine Ketones Negative Negative Urine Protein Negative Negative Urine Leukocytes Negative Negative Urine Blood Negative Negative Urine Nitrite Negative Negative Urine Bilirubin Negative Negative Urine Glucose Negative Negative CBC Auto 07/31/2019 [facility] White Blood 6.8 10^3/uL Normal 3.5-10.[address] [place] [address] [phone] Red Blood Count 4.73 10^6/uL Normal 3.70-4.87 [...] Blood Cells % 0.1 Comp Metabolic 07/31/2019 [facility] Sodium 140 mmol/L Normal 135-[address] [place] [address] [phone] Potassium 4.2 mmol/L Normal 3.5-5.0 Chloride 107 [...] Egfr 84.4 >60 3 Laboratory test 07/31/2019 [facility] TSH (Thyroid 0.09 Low 0.34-5.[address] Stim Horm) mcIU/mL [place] [address] [phone] Connective 07/31/2019 [facility] Anti-Nuclear 0.5 U [address] Antibody [place] [address] [phone] Cyclic Citrullinated Peptide <15.6 U 5 Interpretation See Comment 6 Lyme Disease AB 07/31/2019 [facility] IgG Immunoblot Negative Negative Immunoblot WB [address] [place] [address] [phone] IgG detected against p41 kDa IgM Immunoblot Negative Negative IgM detected against p41 kDa Lyme Disease Interpretation See Comment 7 Xray 07/13/2019 [facility] Mammography Screening, <pending> [address] Bilateral; 2-View Each Breast [place] [address] [phone] 1 REFERENCE VALUE <=1.0 (Negative) Test Performed by: [facility] [address] [place] [address] Basketball Assembler: Shane Riggs M.D. Ph.D.; [facility]# [id number] 2 Because ethnic data is not always [...] 3.0 U. Studies performed at [facility] indicate that positive STEFFANIE results <3.0 U are rarely accompanied by positive second order tests. Test Performed by: [facility] [place] [address] Basketball Assembler: Shane Riggs M.D. Ph.D.; CLIA# [id number] 7 Specific serologic response to B. burgdorferi [...] 30 days of symptoms. Test Performed by: [place] [address] Basketball Assembler: Shane Riggs M.D. Ph.D.; CLIA# [id number] Procedures Date Code Description Status 12/03/2019 48988 Brief Emotional/Behav Assessment W/ Scoring Doc Per Completed Standard Inst 11/06/2019 66888 Brief Emotional/Behav Assessment W/ Scoring Doc Per Completed Standard Inst 10/16/2019 83097 Brief Emotional/Behav Assessment W/ Scoring Doc Per Completed Standard [facility] Medical Devices Description No Information Available Encounters Type Date Location Provider Dx Diagnosis Office Visit 12/03/2019 10:15a [facility] Giovanny Conrad MD R05 Cough R50.9 Fever, unspecified Office Visit 11/06/2019 10:45a [facility] Constanza Josenow, DO R51 Headache H53.8 Other visual disturbances R14.0 Abdominal distension (gaseous) Z13.31 Encounter for screening for depression Office Visit 10/16/2019 2:30p [facility] Main Ag Conrad MD J06.9 Acute upper respiratory infection, unspecified Z13.31 Encounter for screening for depression Office Visit 07/20/2019 10:30a [facility] Main IRMA Sinha G44.201 Tension- type headache, unspecified, intractable Z68.26 Body mass index (BMI) 26.0-26.9, adult Assessments Date Code Description Provider 12/03/2019 R05 Cough Ag Conrad MD 12/03/2019 R50.9 Fever, unspecified Ag Conrad MD 11/06/2019 R51 Headache Constanza Josenow, DO 11/06/2019 H53.8 Other visual disturbances Constanza Josenow, DO 11/06/2019 R14.0 Abdominal distension (gaseous) Constanza Josenow, DO 11/06/2019 Z13.31 Encounter for screening for depression Constanza Karnow, DO 10/16/2019 J06.9 Acute upper respiratory infection, [...]
[2019-12-06 11:02] VITALS: BP 109/79
--- NOTE | 2019-12-06 11:31 | UC ---
General HPI - HPI Summary HPI Summary: Here with . Day 4 of flu like illness - feels like she has been hit by a truck. Was tested three days ago by her PCP and was negative for flu. Two days ago developed an itchy rash on her back. Diarrhea yesterday. No N/v. Decrease appetite. TIred and dizzy. has been taking several OTC remedies. Son recently diagnosed with the flu. Remote smoker. Used an inhaler when she was a smoker Meds; reviewed - History of Current Complaint Chief Complaint: UCGeneralIllness Stated Complaint: POSS FLU/RASH/COUGH Time Seen by Provider: 12/06/19 11:00 Hx Last Menstrual Period: 11/13/2019 Pain Intensity: 5 - Allergy/Home Medications Allergies/Adverse Reactions: Allergies Allergy/AdvReac Type Severity Reaction Status Date / Time digoxin Allergy Unknown Verified 12/06/19 10:56 Reaction Details latex Allergy Rash Verified 12/06/19 10:56 plum Allergy Rash Verified 12/06/19 10:56 clavulanic acid AdvReac Diarrhea Verified 12/06/19 10:56 [From Augmentin] Home Medications: Home Medications Albuterol HFA INHALER* [Ventolin HFA Inhaler*] 2 puff INH Q4H PRN #1 mdi [Rx] Benzonatate CAP* [Tessalon 100 MG CAP*] 100 mg PO TID PRN #30 cap 12/06/19 [Rx] Cyanocobalamin TAB* [Vitamin B12 TAB*] 1,000 mcg PO DAILY 12/06/19 [History Confirmed 12/06/19] GuaiFENesin DM sugar free [Robitussin DM 100mg/10mg sugar free*] 10 ml PO Q6H PRN 12/06/19 [History Confirmed 12/06/19] Guaifenesin/Dextromethorphan [Mucinex Dm ER 600-30 mg Tablet] 1 each PO Q12H PRN 12/06/19 [History Confirmed 12/06/19] Ibuprofen TAB* [Motrin TAB* 800 MG] 800 mg PO Q8H PRN 12/06/19 [History Confirmed 12/06/19] Spacer/Holding Chamber (NF) [Easivent CHAMBER (NF)] 1 applic INH Q4HR PRN #1 device 12/06/19 [Rx] Thyroid TAB* [Thyroid TAB 120 MG*] 120 mg PO DAILY 12/06/19 [History Confirmed 12/06/19] PMH/Surg Hx/FS Hx/Imm Hx Previously Healthy: Yes - Surgical History Surgical History: Yes Surgery Procedure, Year, and Place: THYROID 1996&1998 ( THYROIDECTOMY NOW), APPENDIX 1998,GALLBLADDER 2005, C6-C7 FUSION 2008, LT KNEE SURGERY A CHILD ( PETTALLA TENDON REPAIR) CARDIAC ABLATION 1995,LAP YOHANA. 08/2018 ADDITIONAL CSP FUSION [id number] TO OBTAIN OP REPORT-DO CSP DX 1.5 ONLY SCAN NORMAL MODE - Family History Known Family History: Positive: None, Cardiac Disease - Social History Alcohol Use: Occasionally Alcohol Amount: 1-2 per week Substance Use Type: None Substance Use Comment - Amount & Last Used: alprazolam and hydrocodone Smoking Status (MU): Former Smoker Type: Cigarettes Amount Used/How Often: 1/2 PPD Length of Time of Smoking/Using Tobacco: On and Off > 10 Years Have You Smoked in the Last Year: No When Did the Patient Quit Smoking/Using Tobacco: 2008 - Immunization History Most Recent Influenza Vaccination: none Review of Systems All Other Systems Reviewed And Are Negative: Yes Constitutional: Positive: Fever, Chills ENT: Positive: Sore Throat, Nasal Discharge Respiratory: Positive: Cough Gastrointestinal: Positive: Diarrhea Physical Exam Triage Information Reviewed: Yes Appearance: Other: - mildly ill appearing Vital Signs: Initial Vital Signs Temp 100.2 F 12/06/19 10:51 Pulse 90 12/06/19 10:51 Resp 18 12/06/19 10:51 BP 109/79 12/06/19 10:51 Pulse Ox 100 12/06/19 10:51 ENT: Positive: Pharyngeal erythema, Nasal congestion, TMs normal Respiratory: Positive: Lungs clear, Decreased breath sounds Cardiovascular: Positive: RRR, No Murmur Abdomen Description: Positive: Soft Course/Dx - Course Course Of Treatment: This is a 49 yr old with flu like symptoms Flu; positive flu A CXR: negative Outside window of tamiflu but may benefit Plan Albuterol inhaler with spacer 2 puffs every 4 hours as needed for cough Tessalon pearls as needed as directed Continue supportive care as you are doing including rest and fluids If symptoms persist or worsen, recommend follow up with PCP or return to urgent care - Diagnoses Provider Diagnosis: Influenza A Discharge ED - Sign-Out/Discharge Documenting (check all that apply): Patient Departure All imaging exams completed and their final reports reviewed: Yes - Discharge Plan Condition: Fair Disposition: HOME Prescriptions: Albuterol HFA INHALER* [Ventolin HFA Inhaler*] 2 puff INH Q4H PRN #1 mdi PRN Reason: Cough Benzonatate CAP* [Tessalon 100 MG CAP*] 100 mg PO TID PRN #30 cap PRN Reason: Cough Spacer/Holding Chamber (NF) [Easivent CHAMBER (NF)] 1 applic INH Q4HR PRN #1 device PRN Reason: Cough Patient Education Materials: Influenza (ED) Forms: *Work Release Referrals: Constanza Keene DO [Primary Care Provider] - Additional Instructions: Albuterol inhaler with spacer 2 puffs every 4 hours as needed for cough Tessalon pearls as needed as directed Continue supportive care as you are doing including rest and fluids If symptoms persist or worsen, recommend follow up with PCP or return to urgent care - Billing Disposition and Condition Condition: FAIR Disposition: Home
[2019-12-06 11:34] LABS: Influenza A Molecular POSITIVE (Negative)
== END 2019-12-06 12:13 | disposition home or self-care (01) ==
LOC: UCCORT 09:17
DX: J10.1 Influenza due to other identified influenza virus with other respiratory manifestations (principal); R19.7 Diarrhea, unspecified; Z91.040 Latex allergy status; Z91.018 Allergy to other foods; Z88.0 Allergy status to penicillin; Z88.8 Allergy status to other drugs, medicaments and biological substances; Z87.891 Personal history of nicotine dependence
CPT/HCPCS: 71046; 99212; G0463